=== PATIENT | female | born 1945 | race Caucasian/White ===

== ENCOUNTER 2017-08-21 07:26 | Observation (INO) | payer MEDICARE ==
[2017-08-21] MEDS ORDERED: fentaNYL* 50 MCG/ML 2 ML VIAL (100 MCG VIAL) ONE (08:02)
[2017-08-21 08:04] LABS: Mean Platelet Volume 13 um3 (7.4-10.4)
[2017-08-21] MEDS ORDERED: Midazolam* 1 MG/ML 10 ML VIAL (10 MG) ONE (08:54)
[2017-08-21] MEDS ORDERED: Bupivacaine 0.5% SDV PF* 30 ML VIAL ONE ×2 (08:55→08:56)
[2017-08-21] MEDS ORDERED: Glucagon* 1 MG VIAL IV ONE (09:00)
[2017-08-21] MEDS ORDERED: ceFAZolin 1 GM* X ONE DOSE IVPB ×2 (09:00)
[2017-08-21] MEDS ORDERED: Acetaminophen ADULT LIQ* 650 MG/20.3 ML UDC PO PRN (11:40)
[2017-08-21] MEDS ORDERED: Ondansetron INJ* 2 MG/ML VIAL IV PRN (11:40)
[2017-08-21] MEDS ORDERED: Dextrose 50% Syringe 50 ML* 25 GM/50 ML SYRINGE IV PUSH PRN (11:40)
[2017-08-21] MEDS ORDERED: Acetaminophen SUPP* 650 MG SUPP PR PRN (11:45)
[2017-08-21] MEDS ORDERED: Albuterol HFA INHALER* 8 gm MDI INH PRN (11:45)
[2017-08-21] MEDS ORDERED: hydrALAZINE IV* 20 MG/ML VIAL IV SLOW PU PRN (11:46)
[2017-08-21] MEDS: Morphine INJ* 2 MG/ML 1 ML SYRINGE (TWO MG - NEW SYRINGE VERSION) IV PRN ×3 (12:38→23:13)
[2017-08-21] MEDS: NS 0.9% 1000 ML* 1,000 ML IV SCH (12:41)
[2017-08-21] MEDS: Insulin LISPRO* 1 UNITS UNIT SUBCUT SCH ×3 (12:55→23:48)
--- NOTE | 2017-08-21 13:24 | HP ---
CC: Dr. Eli; Dr. Pardo * HISTORY AND PHYSICAL: DATE OF ADMISSION: 08/21/17 PRIMARY CARE PROVIDER: Dr. Rizo. INTERVENTIONAL RADIOLOGIST: Dr. Pardo. ATTENDING PHYSICIAN WHILE IN THE HOSPITAL: Mira Wen MD * (Report dictated by Barry Man NP). HISTORY OF PRESENTING ILLNESS: Mrs. Young is a 71-year-old female patient who was admitted earlier this month on the and was found to have a CVA, most thought secondary to be due to atrial fibrillation. She was noted to have troubles with dysphagia and NG tube was placed and she was actually sent to [facility]. 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 She was started on Xarelto. She was transitioned over to [facility] status and she had been doing well there. Unfortunately though her swallowing function had not safely return, so the NG tube was removed and she was sent here for a G-tube placement, which she underwent today. Dr. Pardo had asked the hospitalist service to evaluate for admission. The patient was evaluated post procedure. She states she just feels tired. She denies any abdominal discomfort, denies any chest pain, and denies having any shortness of breath. She does carry a history of new onset atrial fibrillation, again diagnosed earlier this month, history of CVA, history of CHF, diabetes, CAD, history of TX. She does have a history of breast cancer, and dysphagia. Because of the recent G-tube placement, we were asked to evaluate for admission. PAST MEDICAL HISTORY: Significant for: 1. Presumably CHF. 2. History of diabetes. 3. CAD. 4. Question of TX in the past. 5. Breast cancer. 6. Atrial fibrillation. 7. Recent right vertebral cardioembolic CVA. PAST SURGICAL HISTORY: She has had a cholecystectomy and she has had a lumpectomy on the right side right breast. She has a G-tube placement done today. FAMILY HISTORY: Mother is diabetic. Father's history is unknown. SOCIAL HISTORY: She does not smoke, does not drink. She does not wish to appoint a surrogate decision maker at this point. ALLERGIES TO MEDICATIONS: Include CODEINE and SULFA. MEDICATIONS: The home meds according to the [facility]: 1. Metformin 500 mg b.i.d. 2. Requip 0.25 mg at bedtime. 3. Xarelto 15 mg daily. 4. Nystatin 1 application topically t.i.d. 5. Lisinopril 5 mg p.o. b.i.d. 6. Insulin regular sliding scale. 7. Lantus 25 units at bedtime. 8. Lipitor 40 mg daily. 9. Aspirin 81 mg daily. 10. Ventolin 2 puffs inhaled every 4 hours as needed. 11. Tylenol 650 mg p.o. every 4 hours as needed. REVIEW OF SYSTEMS: There is no documented fever. She denied having any significant weight change. There was no double vision. She denies having any ear discharge. No rhinorrhea. No sore throat. No thyroid enlargement. Denied having any chest pain. There is no orthopnea. No nocturnal dyspnea. She denies having any abdominal discomfort. She denies feeling nauseated. No vomiting. No dysuria. No frequency. There is no seizure, no loss of consciousness. No pruritus and no skin ulcerations. Review of 14 systems completed, all others negative. PHYSICAL EXAMINATION GENERAL: At this time, Mrs. Young is a 71-year-old female patient. She appears to be well nourished, well developed. She does not appear to be in any acute distress. She is sitting in the post procedure bed. VITAL SIGNS: Blood pressure 96/44, pulse is 85, respirations were 18, O2 sat 93 %, and temperature 98.5. HEENT: Head: Atraumatic, normocephalic. Eyes: EOMs are intact. Sclerae anicteric and not pale. Throat: Oral mucosa appears to be moist. No oropharyngeal erythema. NECK: Supple. LUNGS: Clear to auscultation. No wheezes, rales, or rhonchi. HEART: Sounds S1, S2. Regular rate and rhythm. No murmurs, rubs, or gallops. ABDOMEN: Soft, flat. Bowel sounds are present. She does have a G-tube site that is to gravity with a small amount of gastric contents, but no erythema or redness or pain surrounding the site. EXTREMITIES: Pulses were 2+ throughout. She is able to move all 4 extremities. NEUROLOGIC: She is awake. She is alert. She is oriented x3. Her speech is somewhat slurred, but it is understandable. Her regeneration operator were equal. Her tongue was midline. No facial drooping. She is moving all 4 extremities. She had no gross focal deficits. SKIN: Intact. DIAGNOSTIC STUDIES/LAB DATA: Most recent labs that I have. Her platelet count was 214 this morning. Her INR was 0.82, PTT 28. Her sodium was 143, potassium 4.1, chloride of 106, bicarb of 29. BUN of 43, creatinine 1.21. Her WBC is 8.8, her RBC was 4.24, hemoglobin 12.3, hematocrit 38, platelet count again this morning was 214. Old medical records were reviewed. ASSESSMENT AND PLAN: Mrs. Young is a 71-year-old female patient coming into our IR services today for a PEG tube placement. We were asked to evaluate for admission. She will admitted under observation status for: 1. Status post PEG tube placement. I will defer the management to Dr. Pardo' s team. 2. Recent cerebrovascular accident secondary to atrial fibrillation. I will have a call placed out to Dr. Pardo to see whether it will be appropriate to restart her Xarelto. At this point, we are not using the G-tube, so we cannot give her p.o. medications. I would like to get her on some type of blood thinners when it was deemed safe by Dr. Pardo. We can start using the tube tomorrow and we will again wait for his return call. During the dictation, I did get a call from Dr. Pardo, we will go ahead and give the Xarelto tonight through the G-tube, he was okay with that. 3. Hyperlipidemia. We will continue her statin therapy once she can take p.o. 4. Hypertension. I did order a p.r.n. hydralazine. Should her blood pressure get over 170, we will restart lisinopril when it is safe to use G-tube. 5. Diabetes. She will be on just lispro sliding scale and she is going to be n.p.o. until we can use the PEG tube tomorrow. She will be on saline at 75 an hour. 6. History of coronary artery disease. Again, we will get her back on her aspirin in one week and we can give meds safely through the G-tube. 7. History of congestive heart failure. She appears euvolemic. We will just monitor. 8. DVT prophylaxis. She will be on Xarelto. 9. Fluids, electrolytes, and nutrition. We will restart tube feeds tomorrow. 10. Code status: Full code. TIME SPENT: On the admission was 60 minutes; greater than half the time was spent [id number] with the patient obtaining my history and physical, other half of the time spent going over the plan of care with the patient and implementing plan of care. I did discuss plan of care with my attending, Dr. Wen, she is in agreement. BARRY MAN, CRIMPER ASSEMBLER [id number]/[facility] #: [id number] TAMRA
[2017-08-21] MEDS ORDERED: Rivaroxaban TAB(*) 15 MG PO SCH ×2 (17:00→21:00)
--- NOTE | 2017-08-21 22:34 | RAD ---
CPT II Codes: 6045F Procedures performed: Placement of a percutaneous gastrostomy feeding tube with ultrasound and fluoroscopic guidance. Date of service: August 21, 2017 Indication for procedure: Swallowing dysfunction following stroke. Comparison: None Contrast: Approximately 25 mL Omnipaque 300 Fluoroscopy Time: 1 minute and 27 seconds Anesthesia: Conscious sedation with IV Fentanyl and Versed as well as local 1% lidocaine injected locally overlying the gastrostomy site. Conscious sedation time: Timeout: 942 hours Case end: 1018 hours Total conscious sedation time: 36 minutes Additional medications: Ancef 1 gram IV. Glucagon 1.0 mg IV. Procedure Narration and Imaging Findings: The risks and benefit of the procedure were discussed with the patient and informed consent was obtained. The patient received Ancef 1 g immediately before the procedure for antibiotic prophylaxis. The patient also received 1 mg of Glucagon to reduce peristalsis. The patient was placed in the supine position in the fluoroscopy suite and ultrasound imaging of the epigastric area was performed to externally delineate the edge of the left lobe of the liver. Planning Aide images were saved to PACS. A formal time out was performed by Dr. Pardo in the presence of the IR staff and all agreed on the patient, procedure and laterality. The patient was prepped and draped according to standard sterile procedure. The stomach was inflated with air through the nasogastric tube (place prior to presentation to interventional radiology) demarcating well the borders of the stomach, displacing the bowel and allowing confident localizing of the gastropexy sutures and feeding tube. The skin overlying the gastric lumen at the planned feeding tube site was anesthetized with 0.5% Bupivicaine. The first of three gastropexy sutures was inserted into the gastric lumen under fluoroscopic control. Confirmation of intraluminal position was made by aspirating air into the syringe and then injecting contrast which followed the contour of the stomach lumen. The pexy suture was released, the needle removed and the external button was secured to the skin. This was repeated two more times arranging three gastropexy sutures in a triangle configuration ~2 cm apart from each other. Multiple images were saved successively. At the center of the three pexy sutures a small skin jacob was made and an 18 gauge needle was inserted into the stomach under fluoroscopic control and intraluminal position was further confirmed in the same manner as the gastropexy sutures. Through the needle a 0.035" guidewire was advanced into the stomach, the needle was removed and the tract was serially dilated culminating in placement of a 20 [place] percutaneous gastrostomy feeding tube. [place] of advancing the peel-away sheath the superior and inferior most accessory sutures broke. The peel-away sheath and wire remained in the gastric lumen. The balloon was inflated according to the directions. Additional patchy suture was advanced into the gastric lumen at the left lateral margin of the gastrostomy tube site. Contrast was injected into the needle confirming intraluminal position and gastric wall motion was seen after release of the PET/CT suture when gently pulling on the string. Final confirmation of feeding tube intraluminal position was confirmed with contrast injection. The site was dressed with sterile split gauze and Tegaderm. The tube was connected to a drainage bag for 12 hours of gravity drainage. The patient tolerated the procedure well and left Interventional Radiology in stable condition for standard overnight observation. SUMMARY OF PROCEDURE, IMAGING FINDINGS AND INTERVENTIONS PERFORMED: 1. Diagnostic studies performed: * Localization and border imaging of the stomach was acquired with air contrast imaging. * Contrast injection during each placement of a gastropexy suture was performed in the gastric lumen confirming intraluminal placement of the pexy suture. * In the course advancing the peel-away sheath the 2 left of midline (sutures broke and a fourth suture was reinserted under fluoroscopic control confirming intraluminal position with contrast injection. 2. Interpretation of diagnostic studies performed: * Preliminary intraoperative imaging of the stomach demonstrates normal size and morphology without contraindication for percutaneous gastrostomy tube placement. * Intraoperative sonographic imaging does not demonstrate any large pulsating gastric vessels at the intended site of the retention sutures or feeding tube. 3. Surgical interventions performed: * Placement of a percutaneous gastrostomy feeding tube with ultrasound and fluoroscopic guidance. 4. Interpretation of interventions performed: * Final fluoroscopic image demonstrates the feeding tube to be in appropriate gastric intraluminal position secured with the intraluminal balloon device. PLAN: 1. Standard Interventional Radiology post percutaneous feeding tube protocol includes overnight observation with a period of tube to gravity followed by clamping of the tube prior to the onset of tube feeds. 2. Barring any signs of complication, tube feeds may commence approximately 24 hours from time of placement according to the recommendations of the in hospital epic ambulatory specialists. 3. The gastropexy retention sutures should be removed approximately 7-10 days from the time of placement. If this cannot be done in the outpatient setting the patient will return to interventional radiology for bedside pexy removal. 4. Routine scheduled exchange of the feeding tube is advised for the duration of time the tube is necessary.
[2017-08-21] MEDS ORDERED: Rivaroxaban TAB(*) 15 MG PO ONE (23:00)
[2017-08-22] MEDS: NS 0.9% 1000 ML* 1,000 ML IV SCH (03:37)
[2017-08-22] MEDS: Insulin LISPRO* 1 UNITS UNIT SUBCUT SCH ×2 (05:35→12:25)
[2017-08-22 05:56] LABS: BUN/Creatinine Ratio 32.1 (8-20); Calcium 9.3 mg/dL (8.6-10.3); EGFR African American 34.7 (>60); Potassium 5.1 mmol/L (3.5-5.0)
[2017-08-22 06:27] LABS: Hematocrit 35 % (35-47); Hemoglobin 11.4 g/dl (12.0-16.0); Mean Corpuscular HGB Conc 33 g/dl (31-36); Mean Corpuscular Hemoglobin 29 pg (27-31); Mean Corpuscular Volume 89 fL (80-97); Mean Platelet Volume 13 um3 (7.4-10.4); Red Blood Count 3.91 10^6/ul (4.0-5.4); Red Cell Distribution Width 14 % (10.5-15); White Blood Count 10.1 10^3/ul (3.5-10.8)
--- NOTE | 2017-08-22 14:03 | DS ---
CC: Dr. Torres Pardo * DATE OF ADMISSION: 08/21/2017. DATE OF DISCHARGE: 08/22/2017. ADMISSION DIAGNOSES: Status post PEG tube placement, recent CVA, hyperlipidemia , hypertension, diabetes. DISCHARGE DIAGNOSES: Status post PEG tube placement, recent CVA, hyperlipidemia , hypertension, diabetes. HOSPITAL COURSE: The patient is a 71-year-old woman who recently had a CVA and presented to [facility] for PEG tube feeding placement. The patient tolerated the procedure well and was evaluated overnight. The patient started her tube feeds of Glucerna 1.2 at 15 cc an hour to be increased 10 cc every four hours until it reaches a target of 55 cc an hour. The patient tolerated her tube feeds well and was stable for discharge [facility]. PHYSICAL EXAMINATION: On the day of discharge, well-developed, well-nourished woman laying on her bed in no acute distress. Vital Signs: Temperature 98.6 degrees, heart rate 82 beats per minute, respiratory rate 18 breaths per minute , pulse ox 93 percent, blood pressure 111/54. HEENT: Normocephalic, atraumatic. Pupils equal, round and reactive to light. Moist mucus membranes. Neck: Supple. No JVD, bruits, palpable thyroid, or lymphadenopathy. Her chest was clear to auscultation and percussion bilaterally. Cardiovascular: S1, S2 appreciated. Regular rate and rhythm. No murmurs, gallops, or rubs. Abdomen: Positive bowel sounds in all four quadrants. Soft, nontender, nondistended. Extremities: No cyanosis, clubbing or edema. Neuro: Alert and oriented times three. Her PEG tube site looks clean, dry and intact. It is flushing well. MEDICINES ON DISCHARGE: 1. Metformin 500 mg twice daily. 2. Ropinirole 0.25 mg at bedtime. 3. Xarelto 50 mg daily. 4. Nystatin topical 3 times a day. 5. Lisinopril 5 mg twice daily. 6. Insulin regular as scheduled. 7. Lantus insulin 25 units subcu at bedtime. 8. Lipitor 40 mg daily. 9. Aspirin 81 mg daily. 10. Albuterol two puffs every 4 hours as needed. 11. Acetaminophen 650 mg p.r. q.4 hours as needed. DISCHARGE PLAN: The patient will be discharged to [facility] facility. The patient will follow-up with PCP within one week; Dr. Pardo in two weeks. The patient should return to the ED if she has any problems with her PEG tube placement or any other concerns. Over 35 minutes were spent on this discharge, more than 20 minutes of which were spent in direct [id number] contact with the patient in evaluation, physical exam, counseling and coordination of care. [id number]/[facility] #: [id number] TAMRA
[2017-08-22 15:04] VITALS: BP 128/54
== END 2017-08-22 16:20 ==
LOC: IMG 07:26 → MED 11:28
PROVIDERS: ADMIT Internal Medicine; ATTEND Internal Medicine
DX: I69.391 Dysphagia following cerebral infarction (principal); I10 Essential (primary) hypertension; R13.10 Dysphagia, unspecified; I48.91 Unspecified atrial fibrillation; Z79.01 Long term (current) use of anticoagulants; E11.9 Type 2 diabetes mellitus without complications; E78.5 Hyperlipidemia, unspecified; I25.10 Atherosclerotic heart disease of native coronary artery without angina pectoris; Z79.899 Other long term (current) drug therapy; Z88.5 Allergy status to narcotic agent; Z88.2 Allergy status to sulfonamides
CPT/HCPCS: 36415; 49440; 80048; 85025; 85049; 85610; 85730; 96374; 96375; 99156; 99157; A9270-GY; C1769; G0378; J0690; J1610; J2250; J2270; J2405; J3010; Q9967

== ENCOUNTER 2018-05-16 11:03 | Emergency (ER) | payer MEDICARE, OTHER ==
[2018-05-16 11:18] LABS: Hematocrit 34 % (35-47); Hemoglobin 11.6 g/dl (12.0-16.0); Mean Corpuscular HGB Conc 35 g/dl (31-36); Mean Corpuscular Hemoglobin 31 pg (27-31); Mean Corpuscular Volume 88 fL (80-97); Mean Platelet Volume 9.1 um3 (7.4-10.4); Platelet Count 34 10^3/ul (150-450); Red Blood Count 3.81 10^6/ul (4.00-5.40); Red Cell Distribution Width 16 % (10.5-15); White Blood Count 10.8 10^3/ul (3.5-10.8)
--- NOTE | 2018-05-16 11:51 | ED ---
Complex/Multi-Sys Presentation - HPI Summary HPI Summary: This is scribe Halie Kessler documenting for attending Sander Montiel MD. This patient is a 72 year old F BIBA to [facility] from [facility] due to abnormal lab results requiring consultation with hematology. The following history is obtained from chart provided by EMS: Patient was sent from [facility] to [facility] for abnormal lab values and bleeding from the mouth. 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 Patient had not complaints, beside arm pain while at [place]. Patient was not febrile. However there was concern for increased BUN creatinine and low platelets. There was concern for acute leukemia due to bleeding from the gums and thrombocytopenia; patient is in need of hematological intervention. PMHx includes: dehydration, altered mental status, dementia, hyperglycemic, DM, CAD, HTN, CHF, anxiety, depression, UTI, dyslipidemia, neuropathy, and CVA Bloodwork reveals: WBC of 13.9, Hgb 14, Hct 31, platelet 35, neutrophils 2, lymphocytes 14, blasts of 74, INR 1.25, PTT 31, glucose 138, BUN 36 creatinine 1.9. UA is negative for UTI EKG reveals NSR with PVCs and no ST elevations. HPI is limited. Patient is level 5 caveat. Patient is unable to provide history. I, Dr. Montiel, personally performed the services described in this documentation as scribed in my presence and it is both accurate and complete. - History Of Current Complaint Chief Complaint: EDGeneral Hx Obtained From: Medical Records Hx From Patient Unobtainable Due To: Dementia Timing: Constant Location: Negative Associated Signs And Symptoms: Positive: Other - abnormal bloodwork, bleeding from gums Related History: Recent Illness, Recent Hospitalization - Allergies/Home Medications Allergies/Adverse Reactions: Allergies Allergy/AdvReac Type Severity Reaction Status Date / Time No Known Allergies Allergy Verified 05/16/18 12:57 Home Medications: Home Medications Acetaminophen [Acetaminophen ER] 650 mg PO Q8HR PRN 05/16/18 [History Confirmed 05/16/18] Bisacodyl SUPP* [Dulcolax Supp*] 10 mg IL DAILY PRN 05/16/18 [History Confirmed 05/16/18] Cholecalciferol TAB* [Vitamin D TAB*] 1,000 unit PO DAILY 05/16/18 [History Confirmed 05/16/18] FLUoxetine CAP* [PROzac CAP*] 20 mg PO DAILY 05/16/18 [History Confirmed ] Famotidine TAB* [Pepcid 20 MG TAB*] 20 mg PO BID 05/16/18 [History Confirmed ] Gabapentin CAP(*) [Neurontin 100 mg CAP(*)] 100 mg PO TID 05/16/18 [History Confirmed 05/16/18] Insulin GLARGINE(*) [Lantus(*)] 15 units SUBCUT DAILY 05/16/18 [History Confirmed 05/16/18] Insulin GLARGINE(*) [Lantus(*)] 100 units SUBCUT BEDTIME 05/16/18 [History Confirmed 05/16/18] Insulin Regular, Human [Novolin R] 100 unit SUBCUT BID 05/16/18 [History Confirmed 05/16/18] Lisinopril TAB* [Prinivil TAB*] 10 mg PO DAILY 05/16/18 [History Confirmed 05/16] Magnesium Hydroxide LIQ* [Milk of Magnesia LIQ*] 30 ml PO BID PRN 05/16/18 [ History Confirmed 05/16/18] Omeprazole CAP* [Prilosec CAP* 20 MG] 20 mg PO DAILY 05/16/18 [History Confirmed 05/16/18] Rivaroxaban TAB(*) [Xarelto 15 mg(*)] 15 mg PO DAILY 05/16/18 [History Confirmed 05/16/18] Sodium Phosphate,[place]-Dibasic [Enema Ready To Use] 133 ml IL DAILY PRN 05/16/18 [History Confirmed 05/16/18] metFORMIN* [Glucophage 500 MG TAB *] 500 mg FEED TUBE BID 05/16/18 [History Confirmed 05/16/18] PMH/Surg Hx/FS Hx/Imm Hx Endocrine/Hematology History: Reports: Hx Diabetes Cardiovascular History: Reports: Hx Congenital Heart Disease, Hx Hypercholesterolemia, Hx Hypertension, Hx Myocardial Infarction Sensory History: Denies: Hx Contacts or Glasses - unknown, Hx Hearing Aid - unknown Opthamlomology History: Denies: Hx Contacts or Glasses - unknown Neurological History: Reports: Hx CVA, Hx Peripheral Neuropathy Psychiatric History: Reports: Hx Anxiety, Hx Depression - Surgical History Surgery Procedure, Year, and Place: cholecystectomy, cataracts, lumpectomy Infectious Disease History: Unable to Obtain/Confirm Infectious Disease History: Denies: Traveled Outside the [place] in Last 30 Days - Family History Known Family History: Positive: Unknown - LEVEL 5 CAVEAT - Social History Alcohol Use: unable to determine Substance Use Type: Reports: None Smoking Status (MU): Unknown if Ever Smoked Review of Systems All Other Systems Reviewed And Are Negative: No - Comments Additional Review of Systems Comments: ROS is limited. Patient is level 5 caveat. Physical Exam - Summary Physical Exam Summary: VITAL SIGNS: Reviewed. GENERAL: Patient is a elderly female who is lying comfortable in the stretcher.Margen has no complaints at this time and is alert but not oriented. Patient has baseline dementia. Patient is not in any acute respiratory distress. HEAD AND FACE: No signs of trauma. No ecchymosis, hematomas or skull depressions. No sinus tenderness. Right sided facial droop EYES: PERRLA, EOMI x 2, No injected conjunctiva, no nystagmus. EARS: Hearing grossly intact. Ear canals and tympanic membranes are within normal limits. MOUTH: Oropharynx within normal limits. Non-active bleeding from gums NECK: Supple, trachea is midline, no adenopathy, no JVD, no carotid bruit, no c- spine tenderness, neck with full ROM. CHEST: Symmetric, no tenderness at palpation LUNGS: Clear to auscultation bilaterally. No wheezing or crackles. CVS: Regular rate and rhythm, S1 and S2 present, no murmurs or gallops appreciated. ABDOMEN: Soft, non-tender. No signs of distention. No rebound no guarding, and no masses palpated. Bowel sounds are normal. EXTREMITIES: FROM in all major joints, no edema, no cyanosis or clubbing. NEURO: Alert but not oriented No acute neurological deficits; has residual right facial drop and slight right sided hemiparalysis. Speech is normal and follows commands. SKIN: Dry and warm Triage Information Reviewed: Yes Vital Signs On Initial Exam: Initial Vitals Temp Pulse Resp BP Pulse Ox 98.9 F 77 16 152/87 94 05/16/18 11:10 05/16/18 11:10 05/16/18 11:10 05/16/18 11:10 05/16/18 11:10 Vital Signs Reviewed: Yes Diagnostics - Vital Signs Vital Signs Temp Pulse Resp BP Pulse Ox 05/16/18 11:10 98.9 F 77 16 152/87 94 - Laboratory Lab Results: Lab Results 05/16/18 Range/Units 11:09 WBC 10.8 (3.5-10.8) 10^3/ul RBC 3.81 L (4.00-5.40) 10^6/ul Hgb 11.6 L (12.0-16.0) g/dl Hct 34 L (35-47) % MCV 88 (80-97) fL MCH 31 (27-31) pg MCHC 35 (31-36) g/dl RDW 16 H (10.5-15) % Plt Count 34 L (150-450) 10^3/ul MPV 9.1 (7.4-10.4) um3 Neut % (Auto) Pending Lymph % (Auto) Pending [place] % (Auto) Pending Eos % (Auto) Pending Baso % (Auto) Pending Absolute Neuts (auto) Pending Absolute Lymphs (auto) Pending Absolute Monos (auto) Pending Absolute Eos (auto) Pending Absolute Basos (auto) Pending Absolute Nucleated RBC Pending Nucleated RBC % Pending Result Diagrams: 05/16/18 11:09 Lab Statement: Any lab studies that have been ordered have been reviewed, and results considered in the medical decision making process. Complex Multi-Symp Course/Dx Assessment/Plan: This patient is a 72-year-old female who presents to the emergency department after the patient was transferred from [facility] for admission to the hospital services and consultation with hematology. Apparently the patient has been having abnormal labs and shes been having bleeding from the gums. The patient has been having an increased white blood cell count and positive Blast Cells. Therefore she was sent here to rule out leukemia. At arrival to the emergency department the patient does have any complaints and she is not bleeding from the gums. Dr. Pérez from hematology came in and assessed the patient. He requested a repeat CBC . CBC shows White blood cell count of 10.8, hemoglobin 11.6 hematocrit 34, platelets 34. Absolute neutrophil 0.1, Neutrophils percentage is 2, monocytes of 20, blast cells 41 and absolute neutrophils manually 0.2. After the consultation from Dr. Dsouza, his assessment and also he discussed the case and prognosis with the patients brother Christopher and the patients sister Isabel they decided that the patient will not be treated aggressively and they request for the patient to be transferred to the intermediate. Therefore Dr. Pérez communicated that he would like to discharge the patient back to intermediate and not admission to the hospital. At this point the patient is hemodynamically stable alert but not oriented. - Diagnoses Provider Diagnoses: Thrombocytopenia, Bleeding gums, Blast cell leukemia - Physician Notifications Discussed Care Of Patient With: Christopher Pérez - oncology Time Discussed With Above Provider: 12:43 Instructed by Provider To: Other - Dr. Pérez recommeds to not treat patient as she would be to fraile for induction therapy. He states he spoke to the patient' s brother. He states brother will contact other family members and make a decision. At 13:40, Dr. Pérez called back stating that the family has decided to send the patient back to [facility]. Discharge - Sign-Out/Discharge Documenting (check all that apply): Patient Departure - Discharge Plan Condition: Stable Disposition: HOME Meds/Orders/Equipment: Miscellaneous Lab Test Location: None Selected Patient Education Materials: Thrombocytopenia (ED) Referrals: Rinku Santiago MD [Primary Care Provider] - 2 Days Additional Instructions: RETURN TO THE EMERGENCY DEPARTMENT FOR CHANGING OR WORSENING SYMPTOMS. - Billing Disposition and Condition Condition: STABLE Disposition: Home
[2018-05-16 12:20] LABS: ABS Basophils 0 10^3/ul (0-0.2); ABS Neutrophils 0.1 10^3/ul (1.5-7.7); ABS Neutrophils 0.2 10^3/ul (1.5-7.7); Monocytes % 20 % (0-7)
[2018-05-16 14:16] VITALS: BP 151/88
--- NOTE | 2018-05-16 16:20 | CONS ---
CC: [facility] in [facility]; Christopher Pérez MD* MEDICAL ONCOLOGY/HEMATOLOGY CONSULTATION NOTE: DATE OF CONSULTATION: 05/16/18. REASON FOR CONSULTATION: Likely diagnosis of acute leukemia. HISTORY OF PRESENT ILLNESS: Shasha Young is a 72-year-old female, who was able to provide some, but not complete history. Recent relevant history dates back to a CVA affecting the right side/dominant side of her body for which she was hospitalized here at [facility] in August of 2017, it occurred in the setting of atrial fibrillation. She was discharged to [facility], had problems with feeding and had a G-tube placed and she came back and had a G- tube replaced here in late August of 2017 and subsequently has done well enough to not need the G-tube. She was able to return to home following those hospitalizations and lived in her own setting with the assistance of another individual and was walking with a walker. She reports to me that her stroke was about a week ago, but in retrospect, what she was talking about was a second stroke, although, she only acknowledged one. The second stroke occurred about 5 weeks ago, per information received from the patient's brother, Christopher Bermudez, phone number [phone]. After the second stroke, which also affected her right body side, she was hospitalized at [facility] in [place] then transferred to [facility] and then has been residing at [facility] since. Laboratory studies were obtained in April of 2017, presumably around at that time that more recent stroke. At that time, there were some changes in her CBC in retrospect versus her baseline. White count was 3500, H and H 33/11.2, platelet count 261,000, but differential showed 52% lymphocytes and 34% neutrophil with an ANC of 1200. There was no associated manual differential. More recently, the patient has developed some increased symptoms specifically gum bleeds and a CBC was obtained on 05/14/18 with the white count 9900, H and H 32/10.9, platelet count of 39,000. The differential was reviewed here by our pathologist and is reported to be 51% blast, 39% lymphocytes, 1% neutrophil, 1% myelocyte. It was felt by Pathology here to represent acute leukemia. The patient was sent over to the emergency room at [facility] this morning, although she reports that she went here directly from [facility] not remembering the [facility] emergency room visit. She was sent there for abnormal blood count and the gum bleed. Today, the CBC revealed white count of 10,800, H and H of 34/11.6, and the platelet count of 34 ,000. Blast count is read out as 41% blast, 20% monocytes, 32% lymphocytes, 2% neutrophils, and 2% promyelocytes, and 1% myelocytes. At the present time, the patient denies any acute symptoms. She has been eating and drinking reasonably well. She thinks her weight has been stable. She denies any recent infections. She denies any bleeding other than associated with the gum bleeds. PAST MEDICAL HISTORY: The patient has a long-standing history of diabetes mellitus, hypertension, has a question of NC in the past, although I do not see any confirmation of this. She has had the 2 recent strokes affected her dominant body side. She has a history of breast cancer, she believes about 5 years ago, treated with lumpectomy and radiation. She believes she had drugs afterwards but is unsure whether this was chemo or hormonal therapy. History of congestive heart failure. History of coronary artery disease. Atrial fibrillation as discussed above. Status post cholecystectomy. Status post lumpectomy, status post G-tube placement and removal. MEDICATIONS: At this time include per the [facility] emergency room chart, Xarelto, which was started at the time of the most recent CVA and it appears she has been on it longer. Med list from [facility] from April includes: 1. Aspirin 81 mg daily. 2. Atorvastatin 40 mg daily. 3. Famotidine 20 mg daily. 4. Gabapentin 100 mg t.i.d. 5. Lantus insulin 10 units subcu daily in the morning and 28 units in the evening. 6. Lisinopril 10 mg daily. 7. Metformin 500 mg b.i.d. 8. Bowel meds p.r.n. 9. Novolin insulin p.r.n. 10. Omeprazole 20 mg daily. 11. Prozac 20 mg daily. 12. Ropinirole 0.25 mg daily p.r.n. for restless legs. 13. Xarelto 50 mg daily. 14. Vitamin D. FAMILY HISTORY: Diabetes and no family history of malignancies. SOCIAL HISTORY: The patient has not been a drinker or smoker. She lives at [facility], and previously lived alone. She has never been and has no children. Her closest relatives are her brother, Christopher Bermudez, and sister, Isabel Denson both of whom live in the [facility] area. REVIEW OF SYSTEMS: The patient's time frames are clearly off. She reports her stroke was about a week ago. She believes that she has had gum bleeds for over a year. She is unable to tell me of any previous hospitalizations other than for one of her 2 strokes. She denies any past surgeries. She denies any shortness of breath, chest pain, or palpitations. She denies any changes in bowel or bladder habits recently. She denies any significant bleeding or bruising. PHYSICAL EXAM: A 72-year-old female, in no acute distress, lying comfortably in the emergency room bed. Vital Signs: Blood pressure 152/87, pulse 77, temperature 98.9, O2 saturation 94% on room air. HEENT: PERRL. EOMI. No erythema or exudates. There is a right facial droop. Lungs: Clear. Heart: Regular rate and rhythm without murmurs, rubs, or gallops. Abdomen: Soft, nontender without masses or organomegaly. Extremities: No clubbing, cyanosis, or edema. Back: No CVA or spinal tenderness. Legs with the significant edema especially on the right leg about 1+ and trace on the left. Neurologic Exam: The patient is oriented to May of 2018 since she is at [facility]. Memory and insight are poor. Cranial nerves II through XII are intact other than the facial droop. Motor is 5/5 on the left and 4+/5 in the right hand and in the right distal extremities, the lower extremity. LABORATORY STUDIES: Besides the CBC listed above include chemistry studies with sodium 135, potassium 4.7, chloride 102, bicarb 26, BUN 36, creatinine 1.9 , glucose 138. Liver function test are normal with exception of alk phos of 183. IMPRESSION: A 72-year-old female, who is quite frail and significant medical problem would likely not to be fit for aggressive treatment for acute leukemia. Her counts have changed dramatically even from 1 month ago and she developed significant neutropenia to an ANC now of under 500 along with significant thrombocytopenia, although only mild anemia. Situation was discussed with her at some length and then prolonged discussion was held with her next of kin, her brother, Christopher Bermudez, who will also discuss the situation with their other siblings, sister, Isabel Denson. I have advised him that given her frailty that it is unlikely that she would obtain significant benefit from treatment for acute leukemia. We will send off a flow cytometry on peripheral blood to determine what type of leukemia this is and the chromosomal abnormalities associated with it. 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 It was explained to both to her and to her brother that if she were not treated aggressively for acute leukemia that her life expectancy would likely to be measured in a matter of no more than weeks. If she and the family were to elect to receive treatment for acute leukemia then she will need to be transferred to a tertiary care center as we do not provide primary acute leukemia treatments at this hospital. If decision is made not to treat aggressively for acute leukemia, she could be transferred back to [facility]. [id number]/[facility] #: [id number] [facility]ff
== END 2018-05-16 15:50 | disposition home or self-care (01) ==
LOC: ED 11:03
DX: D69.6 Thrombocytopenia, unspecified (principal); C95.00 Acute leukemia of unspecified cell type not having achieved remission; K06.8 Other specified disorders of gingiva and edentulous alveolar ridge; I69.392 Facial weakness following cerebral infarction; I69.351 Hemiplegia and hemiparesis following cerebral infarction affecting right dominant side; F03.90 Unspecified dementia, unspecified severity, without behavioral disturbance, psychotic disturbance, mood disturbance, and anxiety; I25.10 Atherosclerotic heart disease of native coronary artery without angina pectoris; I11.0 Hypertensive heart disease with heart failure; I50.9 Heart failure, unspecified; F41.9 Anxiety disorder, unspecified; E11.40 Type 2 diabetes mellitus with diabetic neuropathy, unspecified; F32.9 Major depressive disorder, single episode, unspecified; Z87.440 Personal history of urinary (tract) infections; Z79.82 Long term (current) use of aspirin; Z79.4 Long term (current) use of insulin; Z79.899 Other long term (current) drug therapy; Z79.84 Long term (current) use of oral hypoglycemic drugs; Z79.01 Long term (current) use of anticoagulants
CPT/HCPCS: 36415; 85025; 85060; 88271; 88291; 99284